=== PATIENT | female | born 1930 | race Caucasian/White ===

== ENCOUNTER → 2018-06-06 | Outpatient (CLI) | payer OTHER ==
[~2018-06-06] MED LIST: ASPI81TA28 PO; ATEN-173 PO; CEPH500C2 PO; DTR/5 PO; GABA-112 PO; HYDR25TA4 PO; LEVO88TA PO; LOSA50TA54 PO; TRAM-10 PO
--- NOTE | 2018-06-06 10:33 | DIAGNOSTIC IMAGING REPORT ---
ABDOMEN COMPLETE (US) HISTORY: Pain. Edema. BILATERAL LEG EDEMA. COMPARISON: None. FINDINGS: Pancreas: The pancreas demonstrates a normal echotexture. Liver: Unremarkable. Gallbladder: Small gallbladder polyp. CBD: 7 mm. Kidneys: No hydronephrosis. Spleen: Normal in size. Aorta: Normal in caliber. IVC: Patent. IMPRESSION: Small gallbladder polyp. Otherwise negative study. The above report was generated using voice recognition software. It may contain grammatical, syntax or spelling errors. Electronically signed by: Baudilio Cintron M.D. 06/06/2018 10:32 AM Dictated Date/Time: 06/06/2018 10:30 AM
== END | disposition home or self-care (01) ==
LOC: C.ULTR 09:36
PROVIDERS: ATTEND Family Medicine
DX: R60.0 Localized edema (principal); K82.4 Cholesterolosis of gallbladder